=== PATIENT | female | born 1990 | race Two or more races ===

== ENCOUNTER 2025-07-13 13:53 | Emergency (ER) | payer BC, SELFPAY ==
[2025-07-13 14:06] VITALS: BP 149/96; PULSE 74; RESP 18; TEMP 37.2; O2SAT 99
--- NOTE | 2025-07-13 14:28 | XR_ITS ---
Examination: PA lateral chest 2 views Technique: Upright PA lateral chest 2 views Date and time: July 05, 2025, 1443 hrs. Indications: Shortness of breath beginning 2 days ago. Findings: Normal heart size No pneumonia or pulmonary edema Pectus excavatum deformity Impression: No active disease
--- NOTE | 2025-07-13 14:28 | EKG_ITS ---
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
--- NOTE | 2025-07-13 14:30 | PD.EDRME ---
Rapid Medical Screening Exam E Arrival date/time: 07/13/25 13:53 This is a 35-year-old female that comes into the emergency room with multiple complaints. Patient states that symptoms started last week where she feels like her throat was closing. Patient states she felt very short of breath and dizzy. Patient states she works in the [employer] and she was unable to work one of the days last week because of the symptoms. Patient also feels nauseated but is not vomiting. Patient also complains of epigastric pain. Patient states that the epigastric pain gets worse when she eats greasy food. When asked about feeling dizzy she is not able to elaborate symptoms. Patient states she just feels faint. Patient states she had similar symptoms that happened to her in February of this year and she had labs done and everything was normal. I asked patient about possible anxiety and she denies any anxiety. I have greeted and performed a focused initial assessment of this patient. Initial appropriate labs ordered at this time. A comprehensive ED assessment and evaluation of the patient and analysis of all test and completion of medical decision making process will be conducted by additional ED provider. Chief Complaint: Anxiety Time Seen by Provider: 07/13/25 13:56 Vital signs: Vital Signs Temperature 98.9 F 07/13/25 14:06 Pulse Rate 74 07/13/25 14:06 Respiratory Rate 18 07/13/25 14:06 Blood Pressure 149/96 H 07/13/25 14:06 Pulse Oximetry (%) 99 07/13/25 14:06 Oxygen Delivery Method Room Air 07/13/25 14:06
[2025-07-13 15:07] LABS: Collection Type, Urine Voided
[2025-07-13 15:19] LABS: Basophils # (Auto) 0.1 Thou/mm3 (0.0-0.2); Basophils % (Auto) 1 % (0-2.5); Eosinophils # (Auto) 0.1 Thou/mm3 (0.0-0.5); Eosinophils % (Auto) 1 % (0-10); Hematocrit 38.6 % (36.0-46.0); Hemoglobin 12.8 g/dL (12.0-16.0); Immature Granulocytes Auto 0.03 Thou/mm3 (0.00-0.00); Lymphocytes # (Auto) 2.9 Thou/mm3 (1.0-4.8); Lymphocytes % (Auto) 28 % (10-50); Mean Corpuscular HGB Conc 33.2 g/dl (31.0-37.0); Mean Corpuscular Hemoglobin 28.3 pg (25.0-35.0); Mean Corpuscular Volume 85 fL (80-100); Monocytes # (Auto) 0.7 Thou/mm3 (0.0-0.8); Monocytes % (Auto) 6 % (0-12); Neutrophils # (Auto) 6.8 Thou/mm3 (1.8-7.7); Neutrophils % (Auto) 64 % (37-80); Nucleated Red Blood Cell # 0.00 Thou/mm3 (0.00-0.00); Nucleated Red Blood Cell % 0 /100 WBC (0); Platelet Count 248 Thou/mm3 (140-440); RDW Standard Deviation 37.7 fL (36.4-46.3); Red Blood Count 4.53 Miln/mm3 (4.00-5.20); White Blood Count 10.6 Thou/mm3 (3.6-11.0)
[2025-07-13 15:28] LABS: Amphetamine/Methamp Scrn,U Negative (Negative); Barbiturate Screen,Urine Negative (Negative); Benzodiazepines Screen,Urine Negative (Negative); Benzoylecgonine Screen, Ur Negative (Negative); Fentanyl Screen,Urine Negative (Negative); Opiate Screen,Urine Negative (Negative); THC Screen,Urine Negative (Negative)
[2025-07-13 15:46] LABS: Bacteria,Urine 3+; Bilirubin,Urine Negative (Negative); Blood,Urine Negative (Negative); Clarity,Urine Turbid (Clear/Hazy); Color,Urine Lt-Yellow (Lt Yel-Yel); Glucose, Urine Negative (Negative); Ketones,Urine Negative (Negative); Leukocyte Esterase,Urine Positive (Negative); Nitrite,Urine Negative (Negative); PH,Urine 6.0 (5.0-7.0); Protein,Urine Negative (Neg - Trace); RBC,Urine 1 /hpf (0-3); Specific Gravity,Urine 1.012 (1.001-1.035); Squamous Epithelial Cell,Urine 8 /hpf (0-5); Urobilinogen,Urine Negative mg/dL (0.0-1.0); WBC,Urine 11 /hpf (0-5)
[2025-07-13 15:46] LABS: Alanine Aminotransferase 11 U/L (10-49); Albumin, Serum 4.1 gm/dL (3.5-5.0); Albumin/Globulin Ratio 1.5 (1.2-2.2); Alkaline Phosphatase 67 U/L (46-116); Anion Gap 7 (7-16); Aspartate Amino Transferase 18 U/L (0-34); BUN/Creatinine Ratio 11 Ratio (12-20); Bilirubin,Total 0.3 mg/dL (0.3-1.2); Blood Urea Nitrogen 8 mg/dL (9-23); Calcium 9.9 mg/dL (8.3-10.6); Calcium (Corrected) 9.9 mg/dL (8.5-10.1); Carbon Dioxide 28.7 mMol/L (20.0-31.0); Chloride 104 mMol/L (98-107); Creatinine (Component) 0.7 mg/dL (0.6-1.3); Globulin 2.8 gm/dL (2.3-3.5); Glucose 106 mg/dL (74-106); Lipase 28 U/L (12-53); Osmolality,Calculated 277 (275-295); Potassium 3.7 mMol/L (3.4-5.1); Sodium 140 mMol/L (136-145); Total Protein 6.9 gm/dL (5.7-8.2); Troponin I < 0.002 ng/mL (0.0-0.045); eGFR > 60 See Note
[2025-07-13 15:49] LABS: Culture Indicated,Urine Yes
[2025-07-13 16:03] LABS: HCG Qualitative,Urine Negative
[2025-07-13 16:20] VITALS: BP 154/99; PULSE 64; RESP 18; TEMP 36.9; O2SAT 96
--- NOTE | 2025-07-13 16:22 | PD.EDADULT ---
ED General RME/HPI General Chief complaint: Anxiety Stated complaint: Anxious, SOB, middle upper abdominal pain Time Seen by Provider: 07/13/25 13:56 Arrival date/time: 07/13/25 13:53 CC: Fullness in the throat HPI happening on occasion since February, was seen by her PCP for the same complaint patient states that she has been also having episodes of nausea, as well as intermittent shortness of breath and dizziness. Patient denies chest pain shortness of breath difficulty breathing fever chills nausea or vomiting at the time of exam the patient is awake alert oriented nontoxic-appearing not in any acute distress with stable vital signs. RME / HPI RME / HPI narrative: 07/13/25 13:53 This is a 35-year-old female that comes into the emergency room with multiple complaints. Patient states that symptoms started last week where she feels like her throat was closing. Patient states she felt very short of breath and dizzy. Patient states she works in the [employer] and she was unable to work one of the days last week because of the symptoms. Patient also feels nauseated but is not vomiting. Patient also complains of epigastric pain. Patient states that the epigastric pain gets worse when she eats greasy food. When asked about feeling dizzy she is not able to elaborate symptoms. Patient states she just feels faint. Patient states she had similar symptoms that happened to her in February of this year and she had labs done and everything was normal. I asked patient about possible anxiety and she denies any anxiety. I have greeted and performed a focused initial assessment of this patient. Initial appropriate labs ordered at this time. A comprehensive ED assessment and evaluation of the patient and analysis of all test and completion of medical decision making process will be conducted by additional ED provider. Related Data Previous Rx's ?Medication ?Instructions ?Recorded pantoprazole 20 mg tablet,delayed 20 mg PO QDAY #30 tabs 07/13/25 release (Protonix) Allergies Allergy/AdvReac Type Severity Reaction Status Date / Time No Known Drug Allergies Allergy Verified 07/13/25 14:00 Review of Systems Review of Systems Narrative Review of Systems: GEN: No fever, no chills, no weight loss EYES: No discharge, no visual changes, no pain HEENT: No ear pain, no congestion, no sore throat PULM: No shortness of breath, no cough, no congestion CV: No chest pain, no dyspnea on exertion, no palpitations GI: No nausea, no vomiting, no diarrhea, no pain, no constipation : No frequency, no urgency, no dysuria MUSC/SKEL: No joint pain, no back pain SKIN: No rash PSYCH: No hallucinations, no depression HEME/LYMPH: No easy bleeding or bruising tendencies NEURO: No weakness, no headache Past Medical History Social History SMOKING STATUS: Never smoker ED Exam Narrative Physical exam: [General: Not in any acute distress Head normocephalic HEENT: Within acceptable limits Neck is supple nontender Chest equal chest rise nontender to palpation Respiratory: Clear to auscultation no wheezes crackles or rubs CV: Rate rhythm is regular no murmurs rubs or clicks Abdomen is soft nontender no masses positive bowel sounds all 4 quadrants Back: No CVA tenderness no spinous process tenderness from cervical spine thoracic and lumbar spine Skin: Intact no petechiae rash induration ulceration or crepitus Extremities: Moving all extremity against resistance cap refill less than 2 seconds neurosensory intact Neuro: Awake alert oriented x3 Glascow coma 15 no focal deficits] Course Quality Measures none Orders Category Date Time Status EKG (ED ONLY) *Do not use* NOW Care 07/13/25 14:29 Completed EKG (ED Only) Stat Exams 07/13/25 14:28 Draft XR chest 2V Stat Exams 07/13/25 14:28 Completed CBC Stat Lab 07/13/25 15:03 Completed Comprehensive Metabolic Panel Stat Lab 07/13/25 15:03 Completed Drug Screen,Urine Stat Lab 07/13/25 14:40 Completed HCG Qualitative,Urine Stat Lab 07/13/25 14:40 Completed Lipase Stat Lab 07/13/25 15:03 Completed Troponin I Stat Lab 07/13/25 15:03 Completed Urinalysis, C/S if Indicated Stat Lab 07/13/25 14:40 Completed Urine Culture Stat Lab 07/13/25 14:40 Received Vital Signs Vital signs: Vital Signs Temperature 98.9 F 07/13/25 14:06 Pulse Rate 74 07/13/25 14:06 Respiratory Rate 18 07/13/25 14:06 Blood Pressure 149/96 H 07/13/25 14:06 Pulse Oximetry (%) 99 07/13/25 14:06 Oxygen Delivery Method Room Air 07/13/25 14:06 Discharge Plan Plan Patient Disposition: HOME (Self Care) Patient condition on transfer: Stable Prescriptions/Referrals Prescriptions/Med Rec: New pantoprazole [Protonix] 20 mg tablet,delayed release (DR/EC) 20 mg PO QDAY Qty: 30 1RF Referrals: Vitor Corbett MD [Physician, Family Practice] - In 1 week No Primary/Family,Physician [Primary Care Provider] - In 1 week Brooke Weeks MD [Physician, Gastroenterology] - In 1 week Problem List Clinical Impression: Gastric reflux Patient/Caregiver Discharge Instructions Education Materials: ED GERD (Adult), ED Diet, [place] (Adult) Additional Instructions: Take the medication as prescribed, avoid spicy greasy fatty foods stick to a bland diet. No food for 2 hours prior to going to bed. Follow-up with your primary care doctor for referral to GI who recommended endoscopy. If there is a worsening of symptoms in spite of these interventions and medications return the emergency room for reevaluation. Print Language: [place] Stand Alone Forms: [employer] Award Info., Patient Portal Info Letter PA/TRIM LINE WORKER Supervising Physician PA/TRIM LINE WORKER Supervising Physician: Lon Nova ENP MDM Clinical Information Provided by: patient Medical Records reviewed [facility] Meds/Rx considered, not ordered None Labs/Rad/Tests considered, not ordered None Chronic Illness/Social Conditions Explain: Cholecystectomy Labs Labs: interpreted by or Lab(s) Interpretation(s): CBC shows no acute leukocytosis anemia thrombocytopenia CMP shows no significant electrolyte imbalances renal impairment transaminitis or T. bili elevation Troponin is undetectable Lipase is 28 Urine is turbid 11 WBCs 8 squamous epithelia 3+ bacteria leukocyte esterase is positive. Note: The patient has no symptoms states that she has been told in this before I suspect this is a contaminated urine. UDS is negative Imaging Imaging interpretation: interpreted by or Imaging Interpretation(s): Chest x-ray is negative for any acute finding. Medication Administration(s) none Diagnosis Differential Diagnosis ED Complaint MDM: ACS SC pneumonia
== END 2025-07-13 16:50 | disposition home or self-care (01) ==
PROVIDERS: Nurse Practitioner Family; Emergency Provider Emergency Medicine
DX: K21.9 Gastro-esophageal reflux disease without esophagitis (principal); R06.02 Shortness of breath; R94.31 Abnormal electrocardiogram [ECG] [EKG]
CPT/HCPCS: 36415; 71046; 80053; 80307; 81001; 81025; 83690; 84484; 85025; 87086; 93005; 99283